=== PATIENT | female | born 1990 | race Caucasian/White ===

== ENCOUNTER 2023-11-14 23:05 | Emergency (ER) | payer MEDICAID, OTHER ==
[~2023-11-14] VITALS: Ht 170.2 cm; Wt 131.5 kg
[2023-11-14] MEDS ORDERED: dexaMETHasone SOD PHOSPHATE 1 ML ONE (23:36)
[2023-11-14] MEDS: dexaMETHasone SOD PHOSPHATE 10 MG/ML VIAL IV ONE (23:40)
[2023-11-15 02:22] VITALS: BP 145/90; TEMP 98.1; O2SAT 98
== END 2023-11-15 02:23 | disposition home or self-care (01) ==
LOC: ER 23:11
DX: J02.8 Acute pharyngitis due to other specified organisms (principal)
CPT/HCPCS: 99283; 96374; 87880; J1100; 86403-TC